=== PATIENT | male | born 1980 | race Two or more races ===

== ENCOUNTER → 2017-05-10 16:40 | Outpatient (CLI) | payer OTHER ==
[~2017-05-10 16:40] MED LIST: ALLEGRA30 MG PO; CARDURA1 MG PO; CEFADROXIL500 MG PO; METHYLPRED4 MG/DOSE- PO; PREVACID30 MG; REGLAN5 MG/5 ML PO; SINGULAIR10 MG PO; TRAMADOL HCL50 MG PO
== END | disposition home or self-care (01) ==
LOC: RAD 16:40
DX: S62.615 Displaced fracture of proximal phalanx of left ring finger (principal)